=== PATIENT | male | born 1935 | race Two or more races ===

== ENCOUNTER 2017-05-11 01:45 | Emergency (ER) | payer MEDICARE, BC ==
[~2017-05-11] VITALS: Ht 170.2 cm; Wt 81.6 kg
[2017-05-11 02:00] LABS: BASOPHILS % (AUTO) 2.1 % (0.0-2.0); LYMPHOCYTES % (AUTO) 43.9 % (20.0-45.0); MEAN CORPUSCULAR HEMOGLOBIN 30.3 PG (27.0-31.0); MEAN CORPUSCULAR HGB CONC 32.5 G/DL (32.0-36.0); MEAN CORPUSCULAR VOLUME 93 FL (80-99); MEAN PLATELET VOLUME 7.3 FL (6.5-10.1); MONOCYTES % (AUTO) 12.2 % (1.0-10.0); NEUTROPHILS % (AUTO) 38.9 % (45.0-75.0); PLATELET COUNT 275 K/UL (150-450); RED BLOOD COUNT 4.84 M/UL (4.70-6.10); RED CELL DISTRIBUTION WIDTH 11.9 % (11.6-14.8); WHITE BLOOD COUNT 9.4 K/UL (4.8-10.8)
[2017-05-11 02:04] VITALS: BP 139/63
[2017-05-11] MEDS ORDERED: PROTONIX20 MG ORAL (02:07)
[2017-05-11] MEDS ORDERED: LACTULOSE20 GM/301 ORAL (02:07)
[2017-05-11] MEDS ORDERED: METAMUCIL0.4 GM PO (02:07)
[2017-05-11] MEDS ORDERED: MELATONIN 5 MG1 EAC1 ORAL (02:07)
--- NOTE | 2017-05-11 02:12 | Emergency Room Report ---
History of Present Illness General Chief Complaint: Seizure Source: Family Member, Medical Record Present Illness HPI This is an 82-year-old [place] speaking male who has a history of Alzheimer. He is currently in an Alzheimer unit at a snf. He was brought in by EMS with chief complaint of seizure. Nursing staff was changing him in he yelled out. He stiffen up and was shaking. This lasted about 30 seconds. According to one of the pipefitter helper, I told behind his head. He was foaming at the mouth. He is back to baseline now. This happened once before. Family said this never happened before. No trauma. No other complaint. Allergies: Coded Allergies: LEVOTHYROXINE (Verified Allergy, Unknown, 05/11/17) Patient History Past Medical History: see triage record, old chart reviewed, dementia Past Surgical History: other Pertinent Family History: none Social History: Denies: smoking Immunizations: other Reviewed Nursing Documentation: PMH: Agreed, PSxH: Agreed Nursing Documentation-PMH Hx Neurological Problems: Yes - ALZHEIMERS DEMENTIA Review of Systems Eye: Denies: eye pain, blurred vision ENT: Denies: ear pain, nose congestion, throat swelling Respiratory: Denies: cough, shortness of breath Cardiovascular: Denies: chest pain, palpitations Gastrointestinal: Denies: abdominal pain, diarrhea, nausea, vomiting Musculoskeletal: Denies: back pain, joint pain Skin: Denies: rash Neurological: Denies: headache, numbness Endocrine: Denies: increased thirst, increased urine Hematologic/Lymphatic: Denies: easy bruising All Other Systems: negative except mentioned in HPI Physical Exam Vital Signs Date Time Temp Pulse Resp B/P (MAP) Pulse Ox O2 Delivery O2 Flow Rate FiO2 05/11/17 01:39 90 16 132/78 93 Room Air 05/11/17 02:04 97.7 vitals normal Sp02 EP Interpretation: reviewed, normal General Appearance: well appearing, no apparent distress, alert Head: normocephalic, atraumatic Eyes: bilateral eye PERRL, bilateral eye EOMI ENT: hearing grossly normal, normal pharynx Neck: full range of motion, supple, no meningismus Respiratory: chest non-tender, lungs clear, normal breath sounds Cardiovascular #1: regular rate, rhythm, no murmur Gastrointestinal: normal bowel sounds, non tender, no mass, no organomegaly, no bruit, non-distended Musculoskeletal: back normal, normal range of motion Neurologic: alert Psychiatric: mood/affect normal Skin: warm/dry Medical Decision Making Diagnostic Impression: Primary Impression: Epileptic seizure, generalized ER Course Patient presents with altered mental status. Most likely it is seizure. CT scan negative. Labs unremarkable. Based on and advanced dementia will send back to snf. Family is agreeable with this. He said that he does not do well and hospital and get very agitated. We'll hold off any antiepileptic medication for now. If continue be a problem he will need EEG and need to be on medication. Lab Results Impression labs normal Last Vital Signs Date Time Temp Pulse Resp B/P (MAP) Pulse Ox O2 Delivery O2 Flow Rate FiO2 05/11/17 02:04 97.7 80 16 139/63 95 Room Air Status: improved Disposition: [facility] Condition: Stable Patient Instructions: Seizure, Adult Additional Instructions: Followup with your DrRojas in 7 days. Return if symptom worsen. JUDITH DANGELO M.D. May 11, 2017 02:12
[2017-05-11 02:17] LABS: ALANINE AMINOTRANSFERASE 20 U/L (3-41); ALBUMIN/GLOBULIN RATIO 1.1 (1.0-2.7); ANION GAP 19 (5-15); ASPARTATE AMINO TRANSFERASE 22 U/L (5-40); CALCIUM 8.8 mg/dL (8.6-10.2); CARBON DIOXIDE 22 mEQ/L (20-30); CHLORIDE 96 mEQ/L (98-107); HEMOLYSIS 34; POTASSIUM 4.3 mEQ/L (3.4-4.9); SODIUM 137 mEQ/L (135-145); TOTAL PROTEIN 7.2 g/dL (6.6-8.7)
[2017-05-11 02:31] LABS: APPEARANCE,URINE CLEAR; KETONES,URINE NEGATIVE (NEGATIVE); LEUKOCYTE ESTERASE ,URINE NEGATIVE (NEGATIVE); NITRITE,URINE NEGATIVE (NEGATIVE); PH,URINE 6 (4.5-8.0); PROTEIN,URINE NEGATIVE (NEGATIVE); UROBILINOGEN,URINE NORMAL MG/DL (0.0-1.0)
[2017-05-11 04:06] VITALS: BP 106/67
[2017-05-11 04:30] VITALS: BP 133/67
[2017-05-11 04:33] VITALS: BP 133/67
--- NOTE | 2017-05-11 09:23 | Diagnostic Imaging Report ---
Indication: Altered mental status Technique: Continuous helical CT scanning of the head was performed utilizing automated exposure control without intravenous contrast material. Axial and coronal reconstructions were obtained. Comparison: None CT dose: Total DLP 1333 mGycm; CTDI vol 70.4 mGy Findings: There is no acute intracranial or cortical edema. The ventricles, sulci and cisterns are prominent. There is moderate to severe ventriculomegaly. Periventricular hypoattenuation is noted. The posterior fossa and fourth ventricle are unremarkable. Sellar and suprasellar regions are grossly unremarkable. Visualized mastoid air cells and paranasal sinuses are unremarkable. No focal lesions of the bony calvarium or soft tissues of the scalp are seen. Impression: No evidence of acute intracranial hemorrhage or cortical edema. MRI may be obtained for more sensitive evaluation as clinically indicated. Nonspecific periventricular hypoattenuation suggestive of chronic ischemic microvascular changes. Atrophy with moderate to severe ventriculomegaly suggestive of central atrophy. Possibility of normal pressure hydrocephalus not completely excluded. Clinical correlation recommended. The CT scanner at [facility] is accredited by the [employer] and the scans are performed using protocols designed to limit radiation exposure to as low as reasonably achievable to attain images of sufficient resolution adequate for diagnostic evaluation.
== END 2017-05-11 04:33 ==
LOC: EDBD 01:45 → EMR 02:21
DX: G40.409 Other generalized epilepsy and epileptic syndromes, not intractable, without status epilepticus (principal); G30.9 Alzheimer's disease, unspecified; F02.80 Dementia in other diseases classified elsewhere, unspecified severity, without behavioral disturbance, psychotic disturbance, mood disturbance, and anxiety; G93.89 Other specified disorders of brain
CPT/HCPCS: 36415; 70450; 80053; 81003; 85025; 99284